=== PATIENT | male | born 1980 | race Caucasian/White ===

== ENCOUNTER → 2021-01-19 07:46 | Outpatient (CLI) | payer BC, SELFPAY ==
[2021-01-19 13:51] LABS: Basophils # 0.1 K/mm3 (0-0.2); Basophils % 0.7 % (0.1-2.0); Eosinophils # 0.2 K/mm3 (0.0-0.4); Eosinophils % 2.6 % (0.1-12.0); Hematocrit 43.7 % (42.0-52.0); Hemoglobin 14.9 g/dL (14.1-18.0); Lymphocytes # 2.8 K/mm3 (0.7-4.5); Lymphocytes % 32.3 % (10-50); Mean Corpuscular HGB Conc 34.1 g/dL (31.8-35.4); Mean Corpuscular Hemoglobin 31.9 pg (27.0-31.2); Mean Corpuscular Volume 93.6 fl (80-94); Mean Platelet Volume 8.7 fl (7.4-10.4); Monocytes # 0.5 K/mm3 (0.1-1.0); Monocytes % 6.1 % (1.7-9.3); Neutrophils # 5.1 K/mm3 (1.8-7.8); Neutrophils % 58.5 % (37.0-80.0); Platelet Count 202 K/mm3 (142-424); Red Blood Count 4.67 M/mm3 (4.60-6.20); White Blood Count 8.7 K/mm3 (4.8-10.8)
[2021-01-19 13:59] LABS: Alanine Aminotransferase 25 U/L (12-78); Albumin Level 4.4 g/dl (3.5-5.0); Albumin/Globulin Ratio 1.7 (1.1-1.8); Alkaline Phosphatase 85 U/L (38-126); Anion Gap 11.6 mEq/L (5-15); Aspartate Amino Transferase 29 U/L (17-59); Bilirubin,Total 0.7 mg/dl (0.2-1.3); Blood Urea Nitrogen 16 mg/dl (9-20); Calcium 9.5 mg/dl (8.4-10.2); Carbon Dioxide 30 mmol/L (22.0-30.0); Chloride 102 mmol/L (98-107); Estimated Glomerular Filt Rate 93 ml/min (>60); GFR (African American) 113 ML/MIN (>60); Globulin 2.6 g/dL (1.3-3.2); Glucose 110 mg/dl (74-100); Potassium 4.6 mmoL/L (3.5-5.1); Sodium 139 mmol/L (136-145)
[2021-01-19 14:14] LABS: 25-OH Vitamin D, Total 36.6 ng/mL (30-100)
[2021-01-19 14:18] LABS: Free Thyroxine Index 2.4 ug/dL (5.93-13.13); T4 (Thyroxine) 6.4 ug/dl (5.53-11.0); Triiodothryronine (T3) Uptake 37 % (23.5-40.5)
[2021-01-19 14:31] LABS: Thyroid Stimulating Hormone 2.39 uIU/mL (0.465-4.68)
[2021-01-19 14:48] LABS: Vitamin B12 776 pg/mL (239-931)
[2021-01-25 04:20] LABS: Testosterone, Total, LC/MS 435.3 ng/dL (264.0-916.0)
== END ==
PROVIDERS: Visit Provider Internal Medicine Adolescent Medicine
DX: E29.1 Testicular hypofunction (principal); R53.81 Other malaise; R53.83 Other fatigue
CPT/HCPCS: 36415; 80053; 82306; 82607; 84402; 84403; 84436; 84443; 84479; 85025

== ENCOUNTER 2021-04-25 15:42 | Outpatient (RCR) | payer BC, SELFPAY ==
--- NOTE | 2021-04-25 17:08 | [facility].PTOPEV ---
PT Outpatient Evaluation Rehab PT Outpatient Evaluation Start: 04/25/21 15:55 Freq: Status: Active Protocol: Document 04/25/21 15:55 ANTONIETTA (Rec: 04/25/21 17:08 [email or web address] [id number]) Electronically Signed By Kieran Casper, PT 04/25/21 15:55 Outpatient Therapy Subjective History Subjective History Pt. is a 40 year old male who presents to outpatient PT clinic w/ c/o of constant and acute R-sided cervical/RUE P! of insidious onset since 04/13/21. Pt. reports he has been sitting and driving a lot more at work recently. Pt. describes symptoms as sharp and numb that will radiate to the elbow or shoot up the neck. Pt. reports symptoms worsen w/ activity, sleeping, and driving. Pt. reports having some symtpom relief w/ prescribed anti-inflammatories and resting. Pt. denies having recent diagnostic imaging nor injections for current pathology. Pt. denies cancer(self), denies pacemaker , nor latex/medicational allergy. Current medications include a muscle relaxer, anti -inflammatory, allergy/anxiety medication(pt. unable to recall name at this time). PMH includes B/L Carpal Tunnel and Anxiety disorder. 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
== END 2021-05-24 16:15 | disposition home or self-care (01) ==
LOC: PT.CARL 15:42
PROVIDERS: Visit Provider Internal Medicine Adolescent Medicine
DX: M25.511 Pain in right shoulder (principal)
CPT/HCPCS: 97010; 97014; 97110; 97140; 97163; G0283